=== PATIENT | male | born 1970 | race Caucasian/White ===

== ENCOUNTER → 2019-11-15 14:28 | Outpatient (CLI) | payer BC, SELFPAY ==
--- NOTE | ~2019-11-15 | MR_ITS ---
EXAMINATION: MR shoulder LT wo con DATE: 11/15/2019 15:09 INDICATION: Left shoulder pain TECHNIQUE: Magnetic resonance imaging (MRI) of the left shoulder was performed without intravenous co ntrast. Sequences included axial PD-weighted FS FSE, coronal oblique PD-weighted FS FSE, coronal obli que T2-weighted FS FSE, sagittal PD-weighted FS FSE, and sagittal T1-weighted SE. COMPARISON: Left shoulder radiographs dated 10/15/2019 FINDINGS: Coracoacromial arch: The acromion undersurface is curved in morphology (type II). The coracoacromial ligament is normal. A cromioclavicular joint is normal. Rotator cuff: The supraspinatus, infraspinatus and teres minor tendons are normal. The subscapularis tendon is norm al. Normal rotator cuff muscle bulk and signal. Biceps tendon, glenoid labrum and glenohumeral cartilage: Long head of the biceps tendon is normal. Glenoid labrum is normal. Glenohumeral cartilage is normal. Fluid: Physiologic amount of fluid in the glenohumeral joint and biceps tendon sheath. No loose osteochondra l bodies. No abnormally increased fluid signal in the subacromial/subdeltoid bursa to suggest bursiti s. Bones: Normal marrow signal with no edema, fracture or pathologic marrow replacing process. Minimal cystic c hange at the cephalad margin of the lesser tuberosity. IMPRESSION: 1. Minimal cystic change at the cephalad aspect of the lesser tuberosity. Otherwise normal left shoul adebayo MRI with normal labrum, cartilage and rotator cuff ligaments. Reviewed, dictated and finalized at location A. IMPRESSION: 1. Minimal cystic change at the cephalad aspect of the lesser tuberosity. Other avitia normal left shoulder MRI with normal labrum, cartilage and rotator cuff margaret gold.
== END ==
PROVIDERS: Visit Provider Orthopaedic Surgery
DX: M25.512 Pain in left shoulder (principal); G89.29 Other chronic pain
CPT/HCPCS: 73221

== ENCOUNTER 2020-08-15 09:17 | Outpatient (CLI) | payer BC, SELFPAY ==
--- NOTE | ~2020-08-15 | US_ITS ---
EXAMINATION: US abdomen limited EXAM DATE: 08/15/2020 10:47 INDICATION: Right upper quadrant pain. TECHNIQUE: Multiple grayscale and Doppler images of the abdomen right upper quadrant were obtained (b y a technologist who performed the scan) and subsequently reviewed. There is no prior study for rayo warren. FINDINGS: Pancreas poorly visualized likely from overlying bowel gas. The liver has normal echogenicity and co ntour. There are no focal liver lesions identified. There is no evidence of intrahepatic biliary d uct dilation. Portal venous flow was seen in the hepatopedal, normal direction and has normal Dopple r waveform. No right-sided hydronephrosis. Common bile duct measures 4 mm, which is normal. The gallbladder wall is normal in thickness, with ex pected amount of distention. No sonographic evidence of pericholecystic fluid. There is no cholelit hiases. Technologist performing exam reports patient did not demonstrate sonographic Groves's sign. Please note that this sign is less reliable in patients who have received pain medication. IMPRESSION: 1. Unremarkable abdominal ultrasound exam. Reviewed, dictated and finalized at location B. FOLD ERECTOR
== END 2020-08-15 09:18 | disposition home or self-care (01) ==
PROVIDERS: PCP Family Medicine; Visit Provider Family Medicine
DX: R10.11 Right upper quadrant pain (principal)
CPT/HCPCS: 76705

== ENCOUNTER → 2020-09-30 00:34 | Outpatient (CLI) | payer BC, SELFPAY ==
[2020-09-30 19:49] LABS: SARS-CoV-2 RNA PCR Negative
== END ==
PROVIDERS: PCP Family Medicine; Visit Provider Internal Medicine Gastroenterology
DX: Z01.812 Encounter for preprocedural laboratory examination (principal); Z20.822 Contact with and (suspected) exposure to COVID-19
CPT/HCPCS: C9803; U0003; U0005

== ENCOUNTER 2020-10-03 01:17 | Day surgery (SDC) | payer BC, SELFPAY ==
[2020-09-15 14:55] VITALS: BMI 26.0
[2020-10-03 06:47] VITALS: BP 106/77; PULSE 79; RESP 16; TEMP 36.2; O2SAT 100; BMI 26.3
[2020-10-03] MEDS: LACTATED RINGERS 1,000 ML 150 ML IV CONT (07:12)
--- NOTE | 2020-10-03 07:31 | P.PNAN_ITS ---
Anes - Initial Pre Proc Eval Procedure: Operation Date: 10/03/20 08:00 Proposed Procedures p Screening Colonoscopy - Arsenio Freire MD Date/Time: 10/03/20 07:31 Surgeon: Arsenio Freire MD Pre Op Diagnosis: Neoplasm Screening Patient Data Age: 50 Gender: M Height: 6 ft 7 in Weight: 106 kg Last Vital Signs Temp 36.2 C L 10/03/20 06:47 Pulse 79 10/03/20 06:47 Resp 16 10/03/20 06:47 BP 106/77 10/03/20 06:47 Pulse Ox 100 10/03/20 06:47 Allergies Allergy/AdvReac Type Severity Reaction Status Date / Time Penicillins Allergy Mild Rash Verified 10/03/20 06:46 amoxicillin Allergy Unknown Rash Verified 10/03/20 06:46 Home Medications Medication Instructions Recorded Confirmed Type sodium,potassium,mag sulfates See Rx Instructions .ROUTE 09/15/20 Rx [Suprep Bowel Prep Kit] .COMPLEX #1 ml Patient hx anesthesia problems: none Family hx anesthesia problems: none PMFSH Past Medical History Medical History History of EKG 08/30/2015 & 05/28/2017 History of Holter monitoring 01/09/2006 & 08/30/2015 & 11/16/2015 & 06/04/2017 History of melanoma Injury of left hand 03/2009 - 3rd digit PIP joint - chip fx -tendon disruption Low back strain 2011 Neuropathy Paresthesia of both feet 07/2012 PVC (premature ventricular contraction) 2015 Right axillary hidradenitis 02/2006 Sebaceous cyst midline upper back - benign Surgical History Surgical History History of melanoma excision (~2009) [place] teeth extracted (~1981) around age 22 Family History Family History Father Diabetes mellitus Grandparent Skin cancer Lung cancer Other Arthritis Heart disease Hypertension Social History Social History Smoking status: Never smoker Second hand tobacco smoke exposure: No Alcohol intake: current Drinks per week: 1 Substance use: never Substance use type: does not use Living arrangements: alone Gender identity (if verbalized by the patient): Male Spiritual care concerns: No Anes - Eval Final PreProcedure Day of Procedure 10/03/20 07:31 Patient weight: overweight Heart: regular rate and rhythm Lungs: clear to auscultation Airway: Mallampati scale class II Neurological: alert and oriented Last oral intake: >/= 8 hours ASA classification: II Emergent: no Anesthetic plan: proceed Anesthesia type and monitoring: general GIVS and standard monitoring Informed Consent: The patient's anesthetic plan and its attendant risks and benefits were discussed with the patient/family/POA. Questions were solicited and answers provided to the satisfaction of the patient/family/POA.
--- NOTE | 2020-10-03 08:04 | PM.HPGS ---
History of Present Illness History of Present Illness Consent: Risks, benefits, and alternatives have been discussed and questions answered. Patient agrees to proceed with procedure. Chief complaint: Neoplasm Screening Narrative: Turner Fisherurger is a 50 year old male here for screening colonoscopy, had one about 20 years ago when had rectal bleeding. Review of Systems Constitutional: Constitutional: Denies headache(s) and Denies weakness Eyes: Eyes: Denies blurry vision ENT: Reports Normal hearing present, Denies headache(s) and Denies neck pain Cardiovascular: Cardiovascular: Denies chest pain and Denies dyspnea Respiratory: Respiratory: Denies dyspnea Gastrointestinal: Gastrointestinal: Reports no additional gastrointestinal complaints Genitourinary: Genitourinary: Denies dysuria Musculoskeletal: Musculoskeletal: Denies neck pain Integumentary/Breasts: Skin/Breast: Denies dry skin Neurologic: Reports Normal hearing present, Denies headache(s) and Denies weakness Psychiatric: Psychiatric: Denies anxiety Endocrine: Endocrine: Denies change in body appearance Hematologic/Lymphatic: Hematologic/Lymphatic: Denies easy bleeding Allergic/Immunologic: Allergic/Immunologic: Denies urticaria PMFSH Past Medical History Medical History History of EKG 08/30/2015 & 05/28/2017 History of Holter monitoring 01/09/2006 & 08/30/2015 & 11/16/2015 & 06/04/2017 History of melanoma Injury of left hand 03/2009 - 3rd digit PIP joint - chip fx -tendon disruption Low back strain 2011 Neuropathy Paresthesia of both feet 07/2012 PVC (premature ventricular contraction) 2015 Right axillary hidradenitis 02/2006 Sebaceous cyst midline upper back - benign Surgical History Surgical History History of melanoma excision (~2009) [place] teeth extracted (~1981) around age 22 Family History Family History Father Diabetes mellitus Grandparent Skin cancer Lung cancer Other Arthritis Heart disease Hypertension Social History Social History Smoking status: Never smoker Second hand tobacco smoke exposure: No Alcohol intake: current Drinks per week: 1 Substance use: never Substance use type: does not use Living arrangements: alone Gender identity (if verbalized by the patient): Male Spiritual care concerns: No Meds Home Medications and Allergies Home Medications Medication Instructions Recorded Confirmed Type sodium,potassium,mag sulfates See Rx Instructions .ROUTE 09/15/20 Rx [Suprep Bowel Prep Kit] .COMPLEX #1 ml Allergies Allergy/AdvReac Type Severity Reaction Status Date / Time Penicillins Allergy Mild Rash Verified 10/03/20 06:46 amoxicillin Allergy Unknown Rash Verified 10/03/20 06:46 Vital Signs Vital Signs - 24 hr 10/03/20 06:47 Temperature 97.1 F L Pulse Rate 79 Respiratory Rate 16 Blood Pressure 106/77 Pulse Oximetry 100 Exam Const: General: comfortable and no acute distress HENMT: General nose exam: Normal nares present Eyes: General: appearance normal, both eyes and all related structures Neck: Neck: no JVD Resp: Auscultation: clear to auscultation bilaterally Cardio: Rate: regular rate Rhythm: regular rhythm GI: Inspection: non-distended GI Palp: Yes Soft to palpation Skin: General skin exam: normal color Neuro: General: gait normal Speech: normal speech Extrem: General: normal to inspection Psych: Mental Status: mental status grossly normal Assessment and Plan Assessment and plan (1) Colon cancer screening: Code(s): Z12.11 - Encounter for screening for malignant neoplasm of colon Status: Acute Assessment and Plan: proceed with colonoscopy
[2020-10-03 08:26] VITALS: BP 105/69; PULSE 77; RESP 23; O2SAT 100
[2020-10-03 08:36] VITALS: BP 102/64; PULSE 72; RESP 19; O2SAT 99
[2020-10-03 08:46] VITALS: BP 118/77; PULSE 73; RESP 26; O2SAT 99
== END 2020-10-03 08:55 | disposition home or self-care (01) ==
PROVIDERS: PCP Family Medicine; Visit Provider Internal Medicine Gastroenterology
PROC: 0DJD8ZZ Inspection of Lower Intestinal Tract, Via Natural or Artificial Opening Endoscopic (ICD-10-PCS; CPT 45378; principal; 2020-10-03 08:00)
DX: Z12.11 Encounter for screening for malignant neoplasm of colon (principal); K64.8 Other hemorrhoids; Z85.820 Personal history of malignant melanoma of skin
CPT/HCPCS: 45378; J2704; J7120

== ENCOUNTER 2025-07-20 13:34 | Outpatient (CLI) | payer BC, SELFPAY ==
--- NOTE | ~2025-07-20 | CT_ITS ---
EXAMINATION: CT abdomen pelvis w con DATE: 07/20/2025 14:12 INDICATION: Left lower quadrant abdominal pain. TECHNIQUE: Computed tomography (CT) of the abdomen and pelvis was performed with 100 mL Omnipaque 350 intravenous contrast. Automated exposure control and iterative reconstruction technique were employed. The dose-length product was 1030.66 mGy-cm. COMPARISON: None. FINDINGS: The visualized portions of the lung bases demonstrate mild atelectasis. No pleural effusion. The heart size is normal. No pericardial effusion. There is a 13 mm hyperenhancing mass in right hepatic lobe. The gallbladder is normal. There is a 9 mm cyst in the spleen. The pancreas and adrenal glands are normal. There is focal cortical thinning of right kidney. There is a 2.5 cm cyst in left kidney. The prostate is mildly enlarged. The appendix is normal. There are no dilated loops of bowel. There are no pathologically enlarged lymph nodes. There is no free intraperitoneal fluid. There is severe lumbar spondylosis and mild thoracic spondylosis. IMPRESSION: 1. 13 mm hyperenhancing liver mass. In the absence of known malignancy or chronic liver disease, this finding is likely a hemangioma or focal nodular hyperplasia. Reviewed, dictated and finalized at location E. AL ASSAULT RESPONSE COORDINATOR IMPRESSION: 1. 13 mm hyperenhancing liver mass. In the absence of known malignancy or chron ic liver disease, this finding is likely a hemangioma or focal nodular hyperpla skinny.
== END 2025-07-20 13:35 | disposition home or self-care (01) ==
LOC: MICIMG 13:34
PROVIDERS: PCP Family Medicine; Visit Provider Family Medicine
DX: R10.32 Left lower quadrant pain (principal)
CPT/HCPCS: 74177; Q9967